=== PATIENT | female | born 1970 | race Caucasian/White ===

== ENCOUNTER 2016-11-11 17:52 | Emergency (ER) | payer SELFPAY ==
[2016-11-11 17:55] VITALS: BP 103/68; BMI 19.2
--- NOTE | 2016-11-11 18:42 | DR.FEVERAD ---
HPI - Time seen Time seen: 15:36 - PCP Primary Care Physician: NFD - Complaints/Symptoms Chief Complaint Doctor Comments: Admits to a pack per day cigarettes since [age] years of age. Denies history of cardipulmonary disease. Chief Complaint:: PT. C/O FEVER, CHILLS, COUGH, SHORTNESS OF BREATH, RIGHT SIDE AND LOWER BACK PAIN X 2 DAYS. - Source History Provided: Parent - Mode of Arrival Mode of Arrival: Ambulatory - Timing Onset of Chief Complaint: 11/09/16 PMH - PMH Past Medical History: Yes Past Medical History: Arthritis Past Surgical History: Yes Surgical History: Abdominal Surgery, Cholecystectomy, Hysterectomy - Family History History of Family Medical Conditions: Yes Family Medical History: OR - Social History Does patient currently use any type of tobacco product: Yes Have you used tobacco products in the last 12 months: Yes Type of Tobacco Use: Cigarettes Does any household member use tobacco: No Alcohol Use: None Do you use any recreational Drugs:: No Lives With: Spouse Lives Where: Home - infectious screening In the last 2 months have you had wt loss of >10#?: NO Have you had fever, night sweats or hemotysis?: No Have you traveled outside the country in the last 6 months?: No Isolation: Standard ROS - Review of Systems Constitutional: Chills, Fever, Malaise Eyes: No Symptoms Reported ENTM: No Symptoms Reported Respiratoy: No Symptoms Reported Cardiovascular: No Symptoms Reported Gastrointestinal/Abdominal: No Symptoms Reported Genitourinary: No Symptoms Reported Neurological: No Symptoms Reported Musculoskeletal: No Symptoms Reported Integumentary: No Symptoms Reported Hematologic/Lymphatic: No Symptoms Reported Endocrine: No Symptoms Reported Psychiatric: No Symptoms Reported All Other Systems: Reviewed and Negative PE - Vital Signs Vitals: Temperature 98.1 F Pulse Rate 88 Respiratory Rate 18 Blood Pressure 103/68 O2 Sat by Pulse Oximetry 100 - General Limitations: No Limitations General Appearance: Alert, In No Apparent Distress - Head Head Exam: Normal Inspection, Atraumatic - Eyes Eye exam: Normal Appearance, PERRL, EOMI - ENT ENT Exam: Normal Exam External Ear Exam: Normal External Inspection TM/Canal Exam: Bilateral Normal Nose Exam: Normal Nose Exam Nasal Speculum Exam: Bilateral Normal Mouth Exam: Normal Inspection Teeth Exam: Normal Inspection Throat Exam: Normal Inspection - Neck Neck Exam: Normal Inspection, Full ROM - Respiratory Respiratory Exam: Normal Lung Sounds Bilat Respiratory Exam: Bilateral Clear to Auscultation - Cardiovascular Cardiovascular Exam: Regular Rate, Normal Rhythm - Abdominal Exam Abdominal Exam: Normal Inspection Abdominal Tenderness: negative: RUQ, RLQ, LUQ, LLQ, Epigastrium, Suprapubic, Diffuse, Mild, Moderate, Severe, Other - Extremities Extremities Exam: Normal Inspection - Back Back Exam: Full ROM - Neurologic Neurological Exam: Alert, Oriented X3, CN II-XII Intact - Psychiatric Psychiatric Exam: Normal Affect - Skin Skin Exam: Warm. negative: Dry, Intact, Normal Color, Rash, Cyanosis, Diaphoresis, Erythema, Pallor, Mottled, Other Distribution: Generalized Course - Reevaluation 1st: Improved ROR - Labs Reviewed Laboratory Results Reviewed?: Yes (low potassium, UA: 3+Leuk,3+Bld) Result Diagrams: 11/11/16 18:59 11/11/16 18:59 Laboratory: WBC 5.5 X10^3/uL (3.6-10.0) 11/11/16 18:59 RBC 3.83 X10^6/uL (3.5-5.4) 11/11/16 18:59 Hgb 12.4 g/dL (12.0-16.0) 11/11/16 18:59 Hct 36.1 % (36.0-47.0) 11/11/16 18:59 MCV 94.4 fL (80.0-100.0) 17 18:59 MCH 32.5 pg (27.0-34.0) 11/11/16 18:59 MCHC 34.4 g/dL (33.0-35.0) 11/11/16 18:59 RDW 13.5 % (11.6-16.5) 11/11/16 18:59 Plt Count 216 X10^3/uL (150.0-450.0) 11/11/16 18:59 MPV 8.1 fL (7.4-11.0) 11/11/16 18:59 Neut % 60.1 % (42.0-75.0) 11/11/16 18:59 Lymph % 28.2 % (21.0-51.0) 11/11/16 18:59 [place] % 10.9 % (0.0-13.0) 11/11/16 18:59 Eos % 0.4 % (0.9-2.9) L 11/11/16 18:59 Baso % 0.4 % (0.2-1.0) 11/11/16 18:59 Neut # 3.3 x10^3/uL (2.2-4.8) 11/11/16 18:59 Lymph # 1.5 X10^3/uL (1.3-2.9) 11/11/16 18:59 [place] # 0.6 x10^3/uL (0.3-0.8) 11/11/16 18:59 Eos # 0.0 x10^3/uL (0.0-0.2) 11/11/16 18:59 Baso # 0.0 X10^3/uL (0.0-0.1) 11/11/16 18:59 Absolute Nucleated RBC 0.0 /100WBC 11/11/16 18:59 Sodium 138 mmol/L (136-145) 11/11/16 18:59 Corrected Sodium TNP 11/11/16 18:59 Potassium 3.3 mmol/L (3.5-5.1) L 11/11/16 18:59 Chloride 104 mmol/L (98-107) 11/11/16 18:59 Carbon Dioxide 25.0 mmol/L (21-32) 11/11/16 18:59 BUN 9 mg/dL (7-18) 11/11/16 18:59 Creatinine 1.01 mg/dL (0.55-1.02) 11/11/16 18:59 Est GFR (MDRD) Af Amer > 60 (>60) 11/11/16 18:59 Est GFR (MDRD) Non-Af > 60 (>60) 11/11/16 18:59 Glucose 71 mg/dL (65-99) 11/11/16 18:59 Calcium 9.0 mg/dL (8.5-10.1) 11/11/16 18:59 Corrected Calcium 9.6 mg/dL (8.5-10.1) 11/11/16 18:59 Total Bilirubin 0.20 mg/dL (0.2-1.0) 11/11/16 18:59 AST 13 Units/L (15-37) L 11/11/16 18:59 ALT 20 Units/L (12-78) 11/11/16 18:59 Alkaline Phosphatase 95 Units/L (46-116) 11/11/16 18:59 C-Reactive Protein 140.90 mg/L (0-3.0) H 11/11/16 18:59 Total Protein 7.4 g/dL (6.4-8.2) 11/11/16 18:59 Albumin 3.3 g/dL (3.4-5.0) L 11/11/16 18:59 Globulin 4.1 g/dL (2.5-4.5) 11/11/16 18:59 Albumin/Globulin Ratio 0.8 Ratio (1.1-2.1) L 11/11/16 18:59 Specimen Type Clean catch urine 11/11/16 18:51 Urine Color Yellow (YELLOW) 11/11/16 18:51 Urine Appearance Hazy (CLEAR) 11/11/16 18:51 Urine pH 6.5 (5.0 - 8.0) 11/11/16 18:51 Ur Specific [place] 1.005 (1.000-1.030) 11/11/16 18:51 Urine Protein Negative (NEGATIVE) 11/11/16 18:51 Urine Glucose (UA) Negative (NEGATIVE) 11/11/16 18:51 Urine Ketones Negative (NEGATIVE) 11/11/16 18:51 Urine Occult Blood 3+ (NEGATIVE) 11/11/16 18:51 Urine Nitrite Negative (NEGATIVE) 11/11/16 18:51 Urine Bilirubin Negative (NEGATIVE) 11/11/16 18:51 Urine Urobilinogen Normal (NORMAL) 11/11/16 18:51 Ur Leukocyte Esterase 3+ (NEGATIVE) 11/11/16 18:51 Urine RBC 0-2 /HPF (NEGATIVE) 11/11/16 18:51 Urine WBC 3-5 /HPF (NEGATIVE) 11/11/16 18:51 Ur Squamous Epith Cells Few /HPF (NEGATIVE) 11/11/16 18:51 Urine Bacteria Trace /HPF (NEGATIVE) 11/11/16 18:51 Ur Culture Indicated? No/not indicated 11/11/16 18:51 - XRAY XRAY Interpreted by: Radiologist (Chest: No cardiopulmonary disease) - Diagnosis Discharge Problem: UTI (urinary tract infection) Qualifiers: Urinary tract infection type: acute cystitis Hematuria presence: with hematuria Qualified Code(s): N30.01 - Acute cystitis with hematuria - Discharge Plan Condition: Stable - Follow ups/Referrals Follow ups/Referrals: NFD,None [Primary Care Provider] - 3 days - Instructions
[2016-11-11] MEDS ORDERED: NS 1000 ML 1,000 ML IV SCH (19:00)
[2016-11-11 19:06] LABS: BASOPHILS % (AUTO) 0.4 % (0.2-1.0); EOSINOPHILS % (AUTO) 0.4 % (0.9-2.9); HEMATOCRIT 36.1 % (36.0-47.0); HEMOGLOBIN 12.4 g/dL (12.0-16.0); LYMPHOCYTES # (AUTO) 1.5 X10^3/uL (1.3-2.9); LYMPHOCYTES % (AUTO) 28.2 % (21.0-51.0); MEAN CORPUSCULAR HEMOGLOBIN 32.5 pg (27.0-34.0); MEAN CORPUSCULAR HGB CONC 34.4 g/dL (33.0-35.0); MEAN CORPUSCULAR VOLUME 94.4 fL (80.0-100.0); MEAN PLATELET VOLUME 8.1 fL (7.4-11.0); MONOCYTES # (AUTO) 0.6 x10^3/uL (0.3-0.8); MONOCYTES % (AUTO) 10.9 % (0.0-13.0); NEUTROPHILS # (AUTO) 3.3 x10^3/uL (2.2-4.8); NEUTROPHILS % (AUTO) 60.1 % (42.0-75.0); PLATELET COUNT 216 X10^3/uL (150.0-450.0); RED BLOOD COUNT 3.83 X10^6/uL (3.5-5.4); RED CELL DISTRIBUTION WIDTH 13.5 % (11.6-16.5); WHITE BLOOD COUNT 5.5 X10^3/uL (3.6-10.0)
[2016-11-11 19:06] LABS: BILIRUBIN,URINE NEGATIVE (NEGATIVE); BLOOD/HEMOGLOBIN,URINE 3+ (NEGATIVE); GLUCOSE, URINE NEGATIVE (NEGATIVE); KETONES,URINE NEGATIVE (NEGATIVE); LEUKOCYTE ESTERASE ,URINE 3+ (NEGATIVE); NITRITES,URINE NEGATIVE (NEGATIVE); PH,URINE 6.5 (5.0 - 8.0); PROTEIN,URINE NEGATIVE (NEGATIVE); UROBILINOGEN,URINE NORMAL (NORMAL)
[2016-11-11 19:09] LABS: APPEARANCE,URINE HAZY (CLEAR); COLOR,URINE YELLOW (YELLOW)
[2016-11-11 19:10] LABS: BACTERIA,URINE TRACE /HPF (NEGATIVE); RBC,URINE 0-2 /HPF (NEGATIVE); SQUAMOUS EPITHELIAL CELL,UR FEW /HPF (NEGATIVE)
[2016-11-11 19:19] LABS: ALANINE AMINOTRANSFERASE 20 Units/L (12-78); ALBUMIN 3.3 g/dL (3.4-5.0); ALKALINE PHOSPHATASE 95 Units/L (46-116); ASPARTATE AMINO TRANSFERASE 13 Units/L (15-37); BLOOD UREA NITROGEN 9 mg/dL (7-18); CHLORIDE 104 mmol/L (98-107); COR CA(FOR HYPOALB) 9.6 mg/dL (8.5-10.1); CREATININE 1.01 mg/dL (0.55-1.02); GLUCOSE 71 mg/dL (65-99); SODIUM 138 mmol/L (136-145); TOTAL PROTEIN 7.4 g/dL (6.4-8.2); eGFR BLACK RACES > 60 (>60); eGFR NON BLACK RACES > 60 (>60)
--- NOTE | 2016-11-11 20:05 | RAD ---
HISTORY: Fever. Study: Single-view chest. Comparison: None. Findings: The trachea is midline. The cardiac silhouette is within normal limits. The lungs are hyperinflated without focal consolidation, pleural effusion or pneumothorax. The bony thorax is grossly unremarkab le. IMPRESSION: No acute cardiopulmonary disease. Reported By:
[2016-11-11] MEDS ORDERED: K-DUR TAB 20 MEQ PO STA (20:30)
[2016-11-11] MEDS ORDERED: K-DUR TAB 20 MEQ PO ONE (20:34)
[2016-11-11] MEDS ORDERED: BACTRIM DS TAB PO ONE ×2 (20:37→20:39)
== END 2016-11-11 21:02 | disposition home or self-care (01) ==
LOC: ER 17:59
DX: N30.01 Acute cystitis with hematuria (principal)
CPT/HCPCS: 36415; 71010; 80053; 81001; 85025; 86140; 96365; 96367; 96374; 99283; A4222